=== PATIENT | male | born 1955 ===

== ENCOUNTER 2017-08-14 07:44 | Day surgery (SDC) | payer OTHER ==
[2017-08-10 10:44] VITALS: BMI 36.5
[2017-08-14] MEDS ORDERED: Lidocaine 2% Inj (20ml) ONE (07:55)
[2017-08-14] MEDS ORDERED: Nitroglycerin 50mg in D5W 0 MG/0 ML BOTTLE IV ONE (07:56)
[2017-08-14] MEDS ORDERED: Iohexol 350mgl/ml 50 ML ONE (07:56)
[2017-08-14] MEDS ORDERED: Iodixanol 320 MG/ML 200 ML BOTTLE IV ONE (07:56)
[2017-08-14] MEDS ORDERED: Midazolam 2 MG/2 ML VIAL ONE (08:19)
[2017-08-14] MEDS ORDERED: Sodium Chloride 0.9% 1,000 ML IV SCH (09:15)
[2017-08-14 10:40] VITALS: TEMP 98.4
--- NOTE | 2017-08-14 11:48 | CARDCATH ---
PROCEDURE DATE: 08/14/2017 PROCEDURES: 1. Coronary angiogram. 2. Left circumflex balloon angioplasty and drug-eluting stent placement. CLINICAL INDICATIONS: 1. Chest pain. 2. Aqu-QK-pneolbdyx myocardial infarction. 3. Coronary artery disease. 4. History of AR and right coronary artery stent placement. 5. Hypertension. 6. Hyperlipidemia. REFERRING PHYSICIAN: Hilton Guzman MD. BRIEF CLINICAL HISTORY: Chase Andrea is a 61-year-old gentleman with history of AR, status post RCA stent placement, admitted to [facility] for the chest pain. Subsequent workup has revealed elevated troponin suggestive of [id number]-MG-hlilavefj myocardial infarction. Patient had a cardiac catheterization at [facility] and subsequently, brought here for an elective intervention of the left circumflex lesion. After informed consent, the patient was prepped and draped in the usual sterile fashion. Lidocaine 2% was given in the right groin for local anesthesia. Using ultrasound guidance with micro puncture, 6-[place] sheath was introduced into right common femoral artery. XBLAD 3.5 guide catheter engaged into left main coronary artery. Contrast injected and left coronary angiogram was done. The angiogram revealed 99% of proximal left circumflex coronary artery lesion. There is a HIRAL-2 flow distal to the lesion. Patient was premedicated with aspirin, Plavix and IV heparin. ACT maintained above 250. The lesion was threaded with Runthrough coronary wire. Predilated with 2.5 x 12 compliant balloon. Stented with 2.75 x 18 Resolute [place] drug-eluting stent. Excellent final angiographic results with brisk HIRAL-3 flow noted. CONCLUSIONS: Successful coronary intervention of the left circumflex coronary artery with drug-eluting stent placement. Patient will be transferred to [facility] for further management. Patient will be discharged tomorrow with aspirin, Plavix, statin, beta-blockers and other appropriate medications. Patient is advised to follow up with [facility] for further cardiac and medical management. Raul Marr MD
[2017-08-14 13:37] VITALS: BP 108/76
--- NOTE | 2017-08-14 18:55 | CARD ---
APPROVED REPORT EKG Measurement Heart [id number] MA [id number] <Conclusion> Normal sinus rhythm with sinus arrhythmia Normal ECG
== END 2017-08-14 14:14 | disposition short-term general hospital (02) ==
LOC: CATH 07:44 → 2RSO 09:21 → CATH 14:14
PROVIDERS: ATTEND Internal Medicine Cardiovascular Disease
DX: I21.4 Non-ST elevation (NSTEMI) myocardial infarction (principal); I25.10 Atherosclerotic heart disease of native coronary artery without angina pectoris; I10 Essential (primary) hypertension; E78.5 Hyperlipidemia, unspecified; Z95.5 Presence of coronary angioplasty implant and graft
CPT/HCPCS: 85175; 93005; 99152; 99153; C1725; C1760; C1769 ×2; C1874; C1887; C1894; C2629; C9600; J1644 ×2; J2250; J3010; J7030; J7040; Q9966; Q9967